=== PATIENT | male | born 1990 | race Caucasian/White ===

== ENCOUNTER 2021-03-09 20:31 | Emergency (ER) | payer OTHER ==
[2021-03-10 01:25] LABS: BASOPHIL 0.8 % (0-2); EOSINOPHIL 6.6 % (0-5); HCT 37.8 % (42.0-52.0); HGB 12.9 g/dl (13.2-18.0); LYMPHOCYTE 40.4 % (15-48); MCH 29.6 pg (25.0-31.0); MCHC 34.1 g/dL (32.0-36.0); MCV 86.7 fL (78.0-100.0); MONOCYTE 12.6 % (0-12); MPV 11.1 fL (6.0-9.5); NEUTROPHIL 39.4 % (41-80); NRBC 0; PLT 261 K/uL (150-400); RBC 4.36 M/uL (4.70-6.00); RDW 12.5 % (11.5-14.0); WBC 6.1 K/uL (4.0-10.5)
[2021-03-10 01:27] LABS: BILIRUBIN NEGATIVE (NEGATIVE); BLOOD NEGATIVE Ery/uL (NEGATIVE); CLARITY CLEAR (CLEAR); COLOR YELLOW (YELLOW); GLUCOSE (U) NORMAL (NORMAL); LEUKOCYTES NEGATIVE Leu/uL (NEGATIVE); NITRITE NEGATIVE (NEGATIVE); PROTEIN NEGATIVE (NEGATIVE)
[2021-03-10 01:28] LABS: AMPHETAMINES NEGATIVE (NEGATIVE); BARBITURATES NEGATIVE (NEGATIVE); ECSTASY (MDMA) NEGATIVE (NEGATIVE); MARIJUANA (THC) NEGATIVE (NEGATIVE); METHADONE NEGATIVE (NEGATIVE); OPIATES NEGATIVE (NEGATIVE); OXYCODONE NEGATIVE (NEGATIVE)
[2021-03-10 02:19] LABS: ALBUMIN 3.1 g/dL (3.4-5.0); ALKALINE PHOSHATASE 62 U/L (46-116); ALT 75 U/L (16-63); AST 29 U/L (15-37); BILIRUBIN - TOTAL 0.3 mg/dL (0.2-1.0); BUN 11 mg/dL (7-18); BUN/CREAT RATIO (CALC) 15.3 RATIO; CHLORIDE 103 mmol/L (98-107); CO2 (BICARBONATE) 30 mmol/L (21-32); CREATININE 0.72 mg/dL (0.67-1.17); GLUCOSE 91 mg/dL (74-106); TOTAL PROTEIN 7.1 g/dL (6.4-8.2)
[2021-03-10 02:22] LABS: ACETAMINOPHEN (TYLENOL) < 2.0 ug/mL (10.0-30.0)
== END 2021-03-10 04:00 | disposition home or self-care (01) ==
LOC: FER 20:31
PROVIDERS: Internal Medicine
DX: S05.12XA Contusion of eyeball and orbital tissues, left eye, initial encounter (principal); H11.32 Conjunctival hemorrhage, left eye; R10.9 Unspecified abdominal pain; F31.9 Bipolar disorder, unspecified; F15.10 Other stimulant abuse, uncomplicated; F19.10 Other psychoactive substance abuse, uncomplicated; F11.10 Opioid abuse, uncomplicated; Z88.8 Allergy status to other drugs, medicaments and biological substances; X58.XXXA Exposure to other specified factors, initial encounter
CPT/HCPCS: 36415; 80053; 80305; 81003; 84443; 84484; 85025; 99284; G0480